=== PATIENT | male | born 1960 | race Caucasian/White ===

== ENCOUNTER 2022-07-03 07:29 | Day surgery (SDC) | payer BC ==
[2022-07-03] MEDS ORDERED: Midazolam 1 MG/ML 2 ML SDV ONE (07:36)
[2022-07-03] MEDS ORDERED: Propofol 200 MG/20 ML SDV ONE ×2 (07:36→09:38)
[2022-07-03] MEDS ORDERED: fentaNYL 50 MCG/ML SDV ONE (07:36)
[2022-07-03] MEDS ORDERED: Lactated Ringers 1,000 ML IV SCH (08:00)
== END 2022-07-03 11:14 | disposition home or self-care (01) ==
LOC: JP.SDS 07:29
PROVIDERS: ATTEND Student in an Organized Health Care Education/Training Program
DX: Z12.11 Encounter for screening for malignant neoplasm of colon (principal); D12.3 Benign neoplasm of transverse colon; Q43.8 Other specified congenital malformations of intestine; K57.30 Diverticulosis of large intestine without perforation or abscess without bleeding; E66.9 Obesity, unspecified; K21.9 Gastro-esophageal reflux disease without esophagitis; R73.03 Prediabetes; Z87.891 Personal history of nicotine dependence; Z79.899 Other long term (current) drug therapy; Z68.28 Body mass index [BMI] 28.0-28.9, adult
CPT/HCPCS: 45380; 88305; J2250; J2704; J3010; J7120